=== PATIENT | female | born 1945 | race Caucasian/White ===

== ENCOUNTER → 2021-04-04 | Outpatient (CLI) | payer MEDICARE ==
[~2021-04-04] MED LIST: BEVESPI AEROS10.7 GM INH; CALCIUM + VITA1 EACH PO; CRESTOR20 MG PO; EXCEDRIN CAPLE1 EACH PO; HYDROCHLOROTHIA25 M2 PO; HYDROCODON-ACE1 EAC7 PO; IMDUR 30 MG TAB30 M1 PO; ISOSORBIDE DINI30 MG PO; MULTIPLE VITAM1 EAC2 PO; MULTIVITAMIN W1 EAC2 PO; PERCOCET PO; ROSUVASTATIN CA20 MG PO; SPIRIVA INH; TOPROL XL25 MG PO; TOPROL XL50 MG PO; TRIAMTERENE/HCT1 CA1 PO; TUMS PO; XARELTO10 MG PO; ZANTAC 150MG T150 MG PO; [UNRECOGNIZED DRUG - OTHER] PO
== END ==
LOC: M.MRI 12:54
PROVIDERS: ATTEND Orthopaedic Surgery
DX: S83.242A Other tear of medial meniscus, current injury, left knee, initial encounter (principal); M17.12 Unilateral primary osteoarthritis, left knee; M23.92 Unspecified internal derangement of left knee; M25.762 Osteophyte, left knee; M25.462 Effusion, left knee; X58.XXXA Exposure to other specified factors, initial encounter; Y93.89 Activity, other specified; Y92.89 Other specified places as the place of occurrence of the external cause; Y99.8 Other external cause status

== ENCOUNTER → 2021-04-20 | Outpatient (CLI) | payer MEDICARE ==
[2021-04-20 10:18] LABS: HEMATOCRIT 38.3 % (37.0-47.0); HEMOGLOBIN 13.2 gm/dL (12.0-15.0); MCH 31.9 pg (26.0-34.0); MCHC 34.5 g/dL (28.0-37.0); MCV 92.4 fL (80.0-100.0); MPV 6.8 fl. (7.2-11.1); RBC 4.15 mil/uL (4.20-5.00); RDW-CV 13.3 % (10.5-14.5)
[2021-04-20 10:41] LABS: ALBUMIN 3.9 g/dL (3.4-5.0); CALCIUM 9.2 mg/dL (8.5-10.1); CREATININE 1.3 mg/dL (0.6-1.3); POTASSIUM 4.1 mmol/L (3.5-5.1); TOTAL BILIRUBIN 1.3 mg/dL (<0.1-1.0); TOTAL PROTEIN 7.4 g/dL (6.4-8.2)
[2021-04-20 10:44] LABS: PROTIME 10.3 Seconds (9.20-11.50)
--- NOTE | 2021-04-20 10:53 | EKG ---
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 MANDUJANO : 1945 Requested By: Mayito Tobin Order Number: [id number] MD: Sohan Velarde Measurements Intervals [place] Rate: 75 P: 67 WV: 166 QRS: 38 QRSD: 92 T: 29 QT: 391 QTc: 437 Interpretive Statements Sinus rhythm Probable left atrial enlargement Compared to ECG 08/08/2018 09:04:12 No significant changes Electronically Signed On 04-20-2021 10:53:08 CDT by Sohan Velarde [email or web address] <ELECTRONICALLY SIGNED> By: Sohan Velarde MD, [facility] 04/20/21 1053 1000 1000 Sohan Velarde MD, [facility] /EPI
== END ==
LOC: M.LAB 08:02
PROVIDERS: ATTEND Orthopaedic Surgery
DX: Z01.818 Encounter for other preprocedural examination (principal); Z01.812 Encounter for preprocedural laboratory examination; M17.12 Unilateral primary osteoarthritis, left knee

== ENCOUNTER 2021-04-26 06:00 | Inpatient (IN) | payer MEDICARE ==
[~2021-04-26] VITALS: Ht 165.1 cm; Wt 74.8 kg
--- NOTE | ~2021-04-26 | OP ---
[facility] [place] [address] [place] [address] OPERATIVE REPORT Name: TRES PARISI Room: [facility] [place]#: [id number] Admission: 04/26/21 Attend Phys: Estefani Reyna Discharge: Date of : 43 Report #: [id number] THIS REPORT FOR: cc: [facility] - Clinic physician unknown [facility] - Clinic physician unknown Mayito Tobin II, DO ~ DATE OF SURGERY: 04/26/2021 PREOPERATIVE DIAGNOSIS: Left knee osteoarthritis. POSTOPERATIVE DIAGNOSIS: Left knee osteoarthritis. PROCEDURE: Left total knee arthroplasty. SURGEON: Mayito Tobin II, DO MANAGER [employer] MARKETING: PALLAVI Ly ANESTHESIA: General endotracheal. ESTIMATED BLOOD LOSS: 50 mL. ANTIBIOTICS: Ancef preoperatively. DRAINS: Medium Hemovac. COMPLICATIONS: None. CONDITION: The patient stable to recovery room. IMPLANTS: Listed in operative record and progress note. BRIEF HISTORY: The patient in the preoperative area. Preoperative H and P was performed. Site was marked, questions were answered. Risks and benefits were discussed with the patient with need about surgery. The patient wished to proceed assuming all risks. DESCRIPTION OF PROCEDURE: The patient was taken to the operative suite and placed supine on the operating table, given appropriate anesthesia. A well-padded tourniquet applied to the upper thigh, which was inflated to 300 mmHg after gravity exsanguination. The operative knee was sterilely prepped and draped. Surgery began by midline incision. This was carried down to subcutaneous tissues. A medial parapatellar arthrotomy was performed, carried down to bone. Patella was then everted and excess soft tissue were removed from the femur. Femoral cutting block was then applied, checked with drop fernando for rotational alignment, pinned in appropriate position, appropriate cuts were [address] [address] OPERATIVE REPORT Name: AILINTRES Room: [address] [facility].#: [id number] Admission: 04/26/21 Attend Phys: Estefani Reyna Discharge: Date of : 43 Report #: [id number]. A 4-in-1 cutting block was then applied, checked for rotational alignment, pinned in appropriate position and appropriate cuts were made. The tibia was exposed. Excess meniscus was removed. Retractor was placed on the collateral ligaments. The tibial cutting block was then applied, pinned in appropriate position, checked with drop fernando for rotational alignment and slope and appropriate cut was made. Tibial bone was removed. The tibial baseplate was then applied, checked for rotational alignment with the drop fernando and pinned in appropriate position. Femur was then applied and box cut was reamed. This was then trialed with spacer, which showed excellent fit and fill and excellent stability of the knee through all range of motion. The patella was reamed in appropriate fashion, sized to appropriate size. Three peg holes were drilled and it was then trialled and shown to have excellent flexion, extension, excellent tracking patella within the groove. These trials were removed. Tibia was punched in appropriate fashion. Bone ends were cleansed with Pulsavac irrigation and cement was mixed and applied to final implants. These were then malleted in position and held the knee in extension and compressed to allow cement to cure. After it cured, excess was removed using [place] and osteotome. Wound was then copiously irrigated and the final spacer was then malleted into position. The tourniquet was deflated. Hemostasis was maintained with electrocautery. Pain cocktail was injected. Medium Hemovac drain was applied. Capsule was closed with 2 FiberWire and 1 Vicryl in [id number] fashion. Skin was closed with 2-0 Vicryl, running 3-0 Monocryl. Dermabond dressing applied. Dale wrap and PolarCare applied. The patient transported to recovery room in stable condition. Counts were correct throughout the procedure. By: 2035 [id number] Tobin II, DO /nt
[~2021-04-26 06:00] MED LIST changes: -HYDROCODON-ACE1 EAC7 PO
[2021-04-26 08:41] LABS: URINE BILIRUBIN NEGATIVE (Negative); URINE BLOOD TRACE (Negative); URINE CLARITY CLEAR; URINE COLOR YELLOW; URINE GLUCOSE-RANDOM NEGATIVE (Negative); URINE KETONES NEGATIVE (Negative); URINE LEUKOCYTES-REFLEX NEGATIVE (Negative); URINE NITRITE-REFLEX NEGATIVE (Negative); URINE PROTEIN NEGATIVE (Negative); URINE SPECIFIC GRAVITY 1.015 (1.005-1.030); URINE UROBILINOGEN 0.2 E.U./dl (0.2-1.0)
[2021-04-26 16:30] VITALS: BP 131/71
[2021-04-26 20:00] VITALS: BP 115/72
[2021-04-27 00:41] VITALS: BP 118/67
[2021-04-27 04:21] VITALS: BP 121/66
[2021-04-27 04:45] LABS: HEMATOCRIT 33.8 % (37.0-47.0); HEMOGLOBIN 11.7 gm/dL (12.0-15.0); MCH 32.1 pg (26.0-34.0); MCHC 34.6 g/dL (28.0-37.0); MCV 92.8 fL (80.0-100.0); MPV 7.3 fl. (7.2-11.1); RBC 3.65 mil/uL (4.20-5.00); RDW-CV 13.4 % (10.5-14.5); WBC 9.2 thou/uL (4.0-11.0)
[2021-04-27 04:53] LABS: CALCIUM 8.5 mg/dL (8.5-10.1); CREATININE 1.3 mg/dL (0.6-1.3); POTASSIUM 3.8 mmol/L (3.5-5.1)
--- NOTE | 2021-04-27 06:58 | NUR ---
PT SLEPT OFF AND ON OVERNIGHT. RECEIVED PO PAIN MED X2 WITH GOOD RESULT. HEMOVAC WITH 200ML BLOODY DRAINAGE OVERNIGHT. JOESPH HOSE, POLAR PACK. UP WITH ASSIST, WALKER AND GB TO BSC TO VOID OVERNIGHT. LWRIST IVF INFUSING AND ABX GIVEN ORDERED. CONT PULSE OX ON OVERNIGHT, ROOM AIR SATS IN 90'S. USED CPM FOR 2 HOURS THIS MORNING AND TOLERATED WELL. ABLE TO USE CALL LITE AND MAKE NEEDS KNOWN.
[2021-04-27 10:37] VITALS: BP 128/64
[2021-04-27] MEDS ORDERED: XARELTO10 MG PO (11:18)
[2021-04-27] MEDS ORDERED: HYDROCODON-ACE1 EAC7 PO (11:18)
--- NOTE | 2021-04-27 13:46 | NUR ---
REMOVED LLE HEMOVAC DRAIN. EBL 200ML BLOOD. DRESSING APPLIED. PT TOLERATED WELL.
[2021-04-27 15:08] VITALS: BP 128/64
[2021-04-27 15:40] VITALS: BP 128/64
[2021-04-27 17:22] VITALS: BP 128/64
--- NOTE | 2021-04-27 17:22 | NUR ---
PATIENT DISCHARGED AT THIS TIME VIA WHEELCHAIR, ACCOMPANIED BY SISTER AND STAFF TO PRIVATE VEHICLE. IV DC'D, COTTON AND BANDAID APPLIED TO AREA. DRSSING TO LEFT KNEE C/D/I. CPM AND POLAR PACK SENT HOME WITH PATIENT. PATIENT BELONGINGS GATHERED AND SENT HOME WITH PATIENT. DISCHARGE INSTRUCTIONS REVIEWED, PATIENT ACKNOWLEDGED UNDERSTANDING. ALL QUESTIONS AND CONCERNS ADDRESSESD.
--- NOTE | 2021-04-28 10:14 | NUR ---
LATE ENTRY: PT A&O, INDEPENDENT WITH ADL'S PRIOR AT ADMIT. PT RESIDES AT HOME WITH SON AND HIS FAMILY. PT USES WALKER FOR MOBIITY. PT HAS PAST HX O HH. PT HAS HX OF SNF AT [facility]. PT INFORMS OF PLAN TO RETURN HOME AT D/C WITH [facility]. [facility] ACCEPTED THE PT AND WILL CONTACT HER TO ARRANGE A TIME TO VISIT. CM WILL REMAIN AVAILLABLE TO ASSIST AND FOLLOW NEEDED. [facility] PHONE: [phone]
== END 2021-04-27 17:15 | disposition home health service (06) | DRG 470 ==
LOC: M.ORTHSURG 06:00 → M.TBA 08:05 → M.ORTHSURG 11:09 → M.2W 12:25 → M.TBA 12:25 → EDSTATUS 12:27 → M.ORTHSURG 14:29 → M.2W 15:03 → M.ORTHSURG 17:29 → M.2W 04-27 17:15
PROVIDERS: Family Medicine; Orthopaedic Surgery; ADMIT Internal Medicine; ATTEND Internal Medicine
PROC: 0SRD0J9 Replacement of Left Knee Joint with Synthetic Substitute, Cemented, Open Approach (ICD-10-PCS; principal; 2021-04-26)
DX: M17.12 Unilateral primary osteoarthritis, left knee (principal); Z20.822 Contact with and (suspected) exposure to COVID-19; I10 Essential (primary) hypertension; E78.5 Hyperlipidemia, unspecified; K21.9 Gastro-esophageal reflux disease without esophagitis